=== PATIENT | male | born 1975 | race Caucasian/White ===

== ENCOUNTER 2016-06-13 10:07 | Emergency (ER) | payer OTHER ==
[2016-06-13 10:14] VITALS: BP 153/96; PULSE 111; TEMP 97.8; BMI 35.7
--- NOTE | 2016-06-13 10:31 | PDOC ---
History of Present Illness - General Chief Complaint: Chest Pain Stated Complaint: CHEST PAIN Time Seen by Provider: 06/13/16 10:31 - History of Present Illness Initial Comments: 06/13/16 12:40 CHIEF COMPLAINT: Chest pain PCP: Dr. Elif Childers HISTORY OF PRESENT ILLNESS: 41 year old male presented to the ED with chief complaints of chest pain. A/c to the patient, chest pain started yesterday at 2am, located in mid sternum, non radiating, exacerbated with movement, relived by leaning backwards and remaining immobile 9/10 in intensity, tearing in quality, not associated with SOB, palpitations or cough. Patient mentions that he slipped and caught himself while he was getting out of the car 4 days ago. No h/o trauma to head, or any physical injury. Denies headache, dizziness, fever, chills, rigors, abdominal pain, nausea or vomiting. Bowel/Bladder habit normal. Sleep/Appetite Normal. Drove his truck for 7 hours last week. No calf tenderness. Patient reports to have similar episode last year, went for Echo which was normal. Recent Travel: None PAST MEDICAL HISTORY: Hyperlipidemia, H. pylori (treated) PAST SURGICAL HISTORY: As mentioned above OCCUPATION: coach driver Social History: Smoking: Denies Alcohol: Denies Drugs: Denies Family History: Unknown Allergies NKDA Medications: None 06/13/16 12:56 Past History - Past Medical History Allergies/Adverse Reactions: Allergies Allergy/AdvReac Type Severity Reaction Status Date / Time No Known Allergies Allergy Verified 06/13/16 10:14 Home Medications: Ambulatory Orders No Home Medications 0 dose .ROUTE UTDICT 11/29/11 Levofloxacin [Levaquin] 500 mg PO DAILY #10 tablet 11/30/11 Other medical history: PT DENIES MEDICAL HX - Psycho/Social/Smoking Cessation Hx Anxiety: No Suicidal Ideation: No Smoking Status: No Smoking History: Never smoked Number of Cigarettes Smoked Daily: 0 Hx Alcohol Use: Yes (OCCASIONALLY) Drug/Substance Use Hx: No Review of Systems - Review of Systems Comments:: 06/13/16 12:46 CONSTITUTIONAL: Absent: fever, chills, diaphoresis, generalized weakness, malaise, loss of appetite HEENT: Absent: rhinorrhea, nasal congestion, throat pain, throat swelling, difficulty swallowing, mouth swelling, ear pain, eye pain, visual Changes CARDIOVASCULAR: Present: Chest pain Absent: chest pain, syncope, palpitations, irregular heart rate, lightheadedness , peripheral edema RESPIRATORY: Absent: cough, shortness of breath, dyspnea with exertion, orthopnea, wheezing, stridor, hemoptysis GASTROINTESTINAL: Absent: abdominal pain, abdominal distension, nausea, vomiting, diarrhea, constipation, melena, hematochezia GENITOURINARY: Absent: dysuria, frequency, urgency, hesitancy, hematuria, flank pain, genital pain MUSCULOSKELETAL: Absent: myalgia, arthralgia, joint swelling SKIN: Absent: rash, itching, pallor HEMATOLOGIC/IMMUNOLOGIC: Absent: easy bleeding, easy bruising, lymphadenopathy, frequent infections ENDOCRINE: Absent: unexplained weight gain, unexplained weight loss, heat intolerance, cold intolerance NEUROLOGIC: Absent: headache, focal weakness or paresthesias, dizziness, unsteady gait, seizure, mental status changes, bladder or bowel incontinence PSYCHIATRIC: Absent: anxiety, depression, suicidal or homicidal ideation, hallucinations. *Physical Exam - Vital Signs Last Vital Signs Temp Pulse Resp BP Pulse Ox 97.8 F 111 H 20 153/96 98 06/13/16 10:12 06/13/16 10:12 06/13/16 10:12 06/13/16 10:12 06/13/16 10:12 - Physical Exam Comments: 06/13/16 12:47 PE: GENERAL: Awake, alert, and fully oriented, in no acute distress HEAD: No signs of trauma EYES: PERRLA, EOMI, sclera anicteric, conjunctiva clear ENT: Auricles normal inspection, hearing grossly normal, nares patent, oropharynx clear without exudates. Moist mucosa NECK: Normal ROM, supple, no lymphadenopathy, JVD, or masses LUNGS: Breath sounds equal, clear to auscultation bilaterally. No wheezes, and no crackles.. HEART: Regular rate and rhythm, normal S1 and S2, no murmurs, rubs or gallops MUSCULOSKELETAL: Tenderness over the midsternum/xiphoid process, right shoulder tenderness ABDOMEN: Soft, nontender, normoactive bowel sounds. No guarding, no rebound. No masses EXTREMITIES: Normal range of motion, no edema. No clubbing or cyanosis. No cords, erythema, or tenderness NEUROLOGICAL: Cranial nerves II through XII grossly intact. Normal speech, normal gait SKIN: Warm, Dry, normal turgor, no rashes or lesions noted. ED Treatment Course - LABORATORY CBC & Chemistry Diagram: 06/13/16 11:11 06/13/16 11:11 Medical Decision Making - Medical Decision Making 06/13/16 10:25 Patient seen and examined at bed side. Looks comfortable. No acute chest pain. Vital unremarkable. Will order Cbc, Cmp, UA, lipase, Troponins, CXR, EKG IV NS IV Toradol 11:30 Patient reassessed. Chest pain has resolved completely. Labs noted, troponins negative, EKG normal sinus, CXR-No acute pathology On the basis of history and physical examination, symptoms are more consistent with musculoskeletal origin, most likely muscle strain. Patient is hemodynamically stable and can be discharged. Explained to the patient in length. Patient advised to see his primary doctor as soon as possible and to take Motrin for pain, to return to the ED if symptoms do not resolve. Illness, Investigation and Plan of care explained to the patient. He verbalized understanding. Case seen and discussed with Dr. Griffiths. *DC/Admit/Observation/Transfer Diagnosis at time of Disposition: Atypical chest pain, Muscle strain - Discharge Dispostion Admit: No - Referrals Referrals: Ebony Childers [Primary Care Provider] - - Patient Instructions Additional Instructions: Your blood work is normal, EKG and chest xray is normal. Most likely your chest pain could be due to muscle strain. Please visit your primary doctor as soon as possible. Return to the ED if symptoms do not resolve or if there are NEW symptoms.
[2016-06-13] MEDS ORDERED: ASPIRIN 81 MG CHEWABLE TABLETS PO ONE (11:01)
[2016-06-13] MEDS ORDERED: KETOROLAC TROMETHAMINE 30 MG/1 ML VIAL IVPUSH ONE (11:02)
[2016-06-13] MEDS ORDERED: SODIUM CHLORIDE 1,000 ML IV SCH (11:15)
[2016-06-13] MEDS ORDERED: KETOROLAC TROMETHAMINE 30 MG/1 ML VIAL ONE (11:23)
[2016-06-13 11:31] LABS: BASOPHIL 0.9 % (0-2.0); EOSINOPHIL 0.8 % (0-4.5); MCH 28.6 pg (25.7-33.7); MCHC 32.4 g/dl (32.0-35.9); MEAN CELL VOLUME 88.3 fl (80-96); MEAN PLT VOLUME 9.2 fl (7.5-11.1); NEUTROPHILS 68.8 % (42.8-82.8); PLATELET COUNT 355 K/MM3 (134-434); RDW 13.8 % (11.9-15.9)
[2016-06-13 11:44] LABS: INR 1.08 (0.82-1.09)
[2016-06-13 11:47] LABS: D-DIMER < 200 ng/ml (<200-235)
[2016-06-13 11:53] LABS: ALBUMIN 4.1 g/dl (3.4-5.0); ANION GAP 9 (8-16); BILIRUBIN,TOTAL 0.4 mg/dL (0.2-1.0); CALCIUM 9.3 mg/dL (8.5-10.1); CO2 29 mmol/L (21-32); CREATININE 0.9 mg/dL (0.7-1.3); GLUCOSE,RANDOM 82 mg/dL (74-106); SGOT/AST 17 U/L (15-37); SGPT/ALT 49 U/L (12-78); TOT PROT 7.8 g/dl (6.4-8.2)
[2016-06-13 11:56] LABS: ALK PHOS 79 U/L (45-117); TROPONIN I < 0.02 ng/ml (0.00-0.05)
--- NOTE | 2016-06-13 16:10 | EKG ---
Test Reason : Blood Pressure : / mmHG Vent. Rate : 089 BPM Atrial Rate : 089 BPM P-R Int : 152 ms QRS Dur : 074 ms QT Int : 326 ms P-R-T Axes : 030 011 026 degrees QTc Int : 396 ms NORMAL SINUS RHYTHM NORMAL ECG WHEN COMPARED WITH ECG OF 29-SEP-2011 18:08, NO SIGNIFICANT CHANGE WAS FOUND Confirmed by SILVIA SHEA MD ([id number]) on 06/13/2016 4:10:09 PM Referred By: Confirmed By:SILVIA SHEA MD
== END 2016-06-13 13:28 | disposition home or self-care (01) ==
LOC: JER 10:07
PROC: 3E0337Z Introduction of Electrolytic and Water Balance Substance into Peripheral Vein, Percutaneous Approach (ICD-10-PCS; principal; 2016-06-13)
PROC: 3E0333Z Introduction of Anti-inflammatory into Peripheral Vein, Percutaneous Approach (ICD-10-PCS; 2016-06-13)
DX: R07.89 Other chest pain (principal); S29.011A Strain of muscle and tendon of front wall of thorax, initial encounter; S21.109A Unspecified open wound of unspecified front wall of thorax without penetration into thoracic cavity, initial encounter; W17.89XA Other fall from one level to another, initial encounter; Y93.89 Activity, other specified; Y92.89 Other specified places as the place of occurrence of the external cause
CPT/HCPCS: 36415; 71020-TC; 80053; 82550; 83735; 84484; 85025; 85379; 85610; 93005; 93010; 96361; 96374; 99284-25

== ENCOUNTER 2020-11-16 03:54 | Emergency (ER) | payer OTHER ==
[2020-11-16 04:14] VITALS: BMI 35.6
[2020-11-16] MEDS ORDERED: DIPHTH,PERTUSS(ACELL),TET 0.5 ML DISP.SYRIN IM ONE ×2 (05:16→05:23)
[2020-11-16] MEDS ORDERED: LIDOCAINE 1%/EPI 1:100000 (20 ML MULTI DOSE VIAL) IJ ONE (06:17)
[2020-11-16] MEDS ORDERED: LIDOCAINE 1%/EPI 1:100000 (20 ML MULTI DOSE VIAL) ONE (06:19)
[2020-11-16] MEDS ORDERED: LIDOCAINE HCL 1%, 10 MG/ML (20ML VIAL) ONE (06:30)
[2020-11-16] MEDS ORDERED: CLINDAMYCIN 900 MG PREMIX IVPB 900 MG/50 ML BAG IVPB ONE ×2 (07:03→07:17)
[2020-11-16] MEDS ORDERED: SODIUM CHLORIDE 0.9% 1000 ML INFUS.BAG IV ONE (07:03)
[2020-11-16] MEDS ORDERED: morphine CARPU-JECT 2 MG/1 ML DISP.SYRIN IVPUSH ONE (07:08)
[2020-11-16] MEDS ORDERED: MORPHINE SULFATE 2 MG/ML VIAL ONE (07:16)
[2020-11-16 07:21] LABS: BASO % 0.7 % (0-2.0); EOS % 0.6 % (0-4.5); HEMATOCRIT 40.6 % (35.4-49); HEMOGLOBIN 13.6 GM/dL (11.7-16.9); LYMPH % 14.2 % (8-40); MCH 29.9 pg (25.7-33.7); MCHC 33.6 g/dl (32.0-35.9); MEAN CELL VOLUME 89.1 fl (80-96); MEAN PLT VOLUME 8.8 fl (7.5-11.1); MONO % 8.7 % (3.8-10.2); NEUT % 75.8 % (42.8-82.8); PLATELET COUNT 394 10^3/uL (134-434); RBC 4.56 M/mm3 (4.00-5.60); RDW 13.9 % (11.9-15.9); WHITE BLOOD COUNT 12.4 K/mm3 (4.0-10.0)
[2020-11-16 07:38] LABS: INR 0.99 (0.83-1.09)
[2020-11-16 07:41] LABS: ACTIVATED PTT 25.2 SECONDS (25.2-36.5)
[2020-11-16 07:42] LABS: ALBUMIN 3.9 g/dl (3.4-5.0); BLOOD UREA NITROGEN 12.5 mg/dL (7-18)
[2020-11-16 07:45] LABS: CREATININE 0.9 mg/dL (0.55-1.3)
[2020-11-16 07:46] LABS: BILIRUBIN,TOTAL 0.5 mg/dL (0.2-1)
[2020-11-16 07:48] LABS: TOT PROT 7.2 g/dl (6.4-8.2)
[2020-11-16 12:42] VITALS: BP 128/83; PULSE 81; TEMP 98.3
== END 2020-11-16 12:42 | disposition home or self-care (01) ==
LOC: JER 03:54
PROC: 3E03329 Introduction of Other Anti-infective into Peripheral Vein, Percutaneous Approach (ICD-10-PCS; principal; 2020-11-16)
PROC: 3E033NZ Introduction of Analgesics, Hypnotics, Sedatives into Peripheral Vein, Percutaneous Approach (ICD-10-PCS; 2020-11-16)
DX: S81.032A Puncture wound without foreign body, left knee, initial encounter (principal); M71.062 Abscess of bursa, left knee
CPT/HCPCS: 36415; 73562-TC-LT-FY; 73701-TC-RT; 80053; 83605; 85025; 85610; 85651; 85730; 86140; 86850; 86900; 86901; 87070; 87205; 90471; 90715; 96365; 96375; 99284-25; Q9967

== ENCOUNTER 2023-07-03 17:58 | Emergency (ER) | payer OTHER ==
[2023-07-03 18:13] VITALS: BP 143/83; PULSE 99; RESP 18; TEMP 98.4; BMI 34.9
[2023-07-03] MEDS ORDERED: KETOROLAC TROMETHAMINE 30 MG/1 ML VIAL ONE (19:42)
[2023-07-03] MEDS ORDERED: ACETAMINOPHEN 500 MG TABLET (FP) ONE (19:43)
[2023-07-03] MEDS: ACETAMINOPHEN 500 MG TABLET (FP) PO ONE (19:46)
[2023-07-03] MEDS: KETOROLAC TROMETHAMINE 30 MG/1 ML VIAL IM ONE (19:46)
== END 2023-07-03 20:37 | disposition home or self-care (01) ==
LOC: JERFT 17:58
PROC: 3E0233Z Introduction of Anti-inflammatory into Muscle, Percutaneous Approach (ICD-10-PCS; principal; 2023-07-03)
DX: R50.9 Fever, unspecified (principal); R05.9 Cough, unspecified; R53.83 Other fatigue; J10.1 Influenza due to other identified influenza virus with other respiratory manifestations; Z20.822 Contact with and (suspected) exposure to COVID-19
CPT/HCPCS: 0241U-QW; 99284-25